=== PATIENT | male | born 1950 | race Caucasian/White ===

== ENCOUNTER → 2016-09-04 | Day surgery (SDC) | payer OTHER ==
[~2016-09-04] VITALS: Ht 188 cm; Wt 109.8 kg
[~2016-09-04] MED LIST: ASPIR 8181 MG PO; COUMADIN 2.5MG2.5 M1 PO; KRILL OIL500 MG PO; LIPITOR40 MG PO; LISINOPRIL2.5 MG PO; TOPROL XL25 MG PO; TRICOR145 MG PO; VITAMIN E400 UNIT PO; ZETIA10 MG PO
--- NOTE | ~2016-09-04 | S ---
[facility] [place] [address] SURGICAL PATH RPT PROCEDURE Name: SHAISTA TOLBERT Room #: REG [facility].#: [id number] Admission: 09/04/16 Date of : 48 Discharge: Report #: [id number] Path Case #: [id number] PATHOLOGY REPORT COLLECTION DATE: 09/04/2016 RECEIVED DATE: 09/04/2016 SUBMITTING PHYS: Dr. Mike Blake OTHER PHYS: Dr. Minnie Jarvis SPECIMEN(S) RECEIVED: A.Left lower lid lesion B.New margin left lower lid lesion lateral C.New margin left lower lid lesion medial * * * * * * * * * * * * FINAL DIAGNOSIS: A. Skin, left lower lid lesion, re-excision: - RESIDUAL BASAL CELL CARCINOMA PRESENT. - Lateral margins and deep margin free of malignancy. - TIPS POSITIVE FOR BASAL CELL CARCINOMA. B. Skin, left lower lid lesion lateral new margin, biopsy: - Negative for malignancy. C. Skin, left lower lid lesion medial new margin, biopsy: - Negative for malignancy. (IUV:mgr; d/t: 09/05/16) PATHOLOGIST: Marie Smith M.D. REPORT ELECTRONICALLY SIGNED BY: Marie Smith M.D. DATE/TIME: 09/05/2016 16:50 * * * * * * * * * * * * GROSS PATHOLOGY: A. The specimen is received fresh from the OR labeled with the patient's name, and "left lower lid lesion" consists of an oriented ellipse of skin measuring 1.2 x 0.7 x 0.3 cm. This is oriented by Dr. Blake as superior, lateral, inferior, and medial, these are assigned 9:00, 12:00, 3:00, and 6:00 respectively. The 6-12:00 is inked black, 6-9:00 is inked blue, and 9-12:00 is inked green. At this point, the specimen is serially sectioned and entirely submitted for frozen section as FSA1, subsequently submitted for permanent sections as A1. B. The specimen is received fresh from the OR labeled with the patient's name, and consists of an L-shape portion of skin, additionally labeled as "new margin left lower lid lateral, along with the patient's name. The specimen measures 1.1 x 0.3 x 0.5 cm. The specimen is additionally oriented inferior and lateral by [address] [address] SURGICAL PATH RPT PROCEDURE Name: SHAISTA TOLBERT [id number] Admission: 09/04/16 Date of : 48 Discharge: Report #: [id number] Path Case #: [id number] White. The lateral margin is inked black, and the inferior margin is not inked. At this point, the specimen is submitted en face for frozen section as FSB1, subsequently submitted for permanent sections as B1. C. The specimen is received fresh from the OR labeled with the patient's name, and "new margin left lower lid medial" consists of a triangular piece of skin measuring 0.7 x 0.5 x 0.5 cm. The new medial margin is inked blue and is submitted en face as FSC1, subsequently submitted for permanent sections as C1. (IUV:mgr; d/t: 09/04/16) FROZEN SECTION DIAGNOSIS: (Maria M Smith M.D.) FSA1, left lower lid lesion, excision: - BASAL CELL CARCINOMA IS PRESENT AT SUPERIOR AND INFERIOR TIPS. FSB1, new medial margin left lower lid lateral, excision: - New margins free. FSC1, new margin left lower lid medial, excision: - New margin free. These findings are discussed with Dr. Mike Blake in OR6 at [facility], and a written report is placed in the patient's chart. (IUV:mgr; d/t: 09/04/16) Testing performed by [facility] at [facility] [address] [place] [address] CLINICAL HISTORY: History of prior carcinoma excised by Moh's surgery, now undergoing re-excision. INITIAL CPT CODE(S): A; 53362, 18829 B; 69658, 99387 C; 59705, 05130 Professional services performed by [facility] at [facility] [address] [place] [address] Technical services performed by [facility] at [address] [place] [address], [address], [place] [address]. [facility] [address] [place] [address] SURGICAL PATH RPT PROCEDURE Name: SHAISTA TOLBERT Room #: REG [facility].#: [id number] Admission: 09/04/16 Date of : 48 Discharge: Report #: [id number] Path Case #: [id number] PHONE: [phone] DIRECTOR: Dante Hernandez M.D. * * * END OF REPORT * * *
--- NOTE | ~2016-09-04 | O ---
[place] [address] OPERATIVE REPORT Name: SHAISTA TOLBERT Room #: REG [facility].#: [id number] Admission: 09/04/16 Attend Phys: Mike Blake MD Discharge: Date of : 48 Report #: [id number] THIS REPORT FOR: //name// CC: RENNY Blake DATE OF SERVICE: 09/04/2016 PREOPERATIVE DIAGNOSIS: Tumor of left lower lid and lateral canthus. POSTOPERATIVE DIAGNOSES: Tumor of left lower lid and lateral canthus, basal cell carcinoma. PROCEDURE: Excision of tumor of left lower lid, left cheek and lateral canthus with fasciocutaneous flap repair of defect, vascularized tarsoconjunctival flap from left upper lid to left lower lid and full thickness skin graft from right upper lid to left lower lid. SURGEON: Mike Blake MD. CANNERY WORKER: None. ANESTHESIA: General. COMPLICATIONS: None. INDICATION FOR SURGERY: This pleasant 66-year-old gentleman has a nodular ulcerated mass in his lateral left lower lid that appears to most likely be a basal cell carcinoma that is not discretely defined. He presents today for excision of this lesion with frozen sections and repair of the ensuing defect. Informed consent was obtained to include but not limit to the potential risk for loss of vision, bleeding, infection, failure to improve the problem, the potential need for further surgery or treatment. DESCRIPTION OF PROCEDURE: The patient was taken to the operating room where general anesthesia was administered. The left lower lid, the left lateral canthus, left infratemporal fossa and the left cheek were all anesthetized with Xylocaine with epinephrine mixed with Marcaine and Wydase. The patient was subsequently prepped and draped in the usual sterile fashion. The lesion was then outlined utilizing a fine tip skin marking pen including approximately 2 mm normal appearing tissue around all of the margins. The incisions were then made perpendicularly across the eyelid margin and drawn down horizontally across the cheek back into the infratemporal fossa. They were then directed superiorly horizontally back up to the median raphe and then back to the lateral canthus. The entire lateral canthus was excised with that specimen. [address] [address] OPERATIVE REPORT Name: SHAISTA TOLBERT Room #: REG [facility] M.R.#: [id number] Admission: 09/04/16 Attend Phys: Mike Blake MD Discharge: Date of : 48 Report #: [id number] bleeding ensued, which was controlled with monopolar cautery. The specimen was then transferred to the waiting pathologist. She snap froze the specimen and found that the lesion was indeed a basal cell carcinoma and it was positive both medially and laterally. An additional medial margin was then taken, was oriented for the pathologist. An additional lateral margin was taken including a slip of the inferior margin laterally. Hemostasis was then re-achieved. The pathologist snap froze those specimens and found that both to be clear. At this point, the defect was quite large including the entire lateral canthus and a great majority of the left lower lid. A fasciocutaneous flap was then developed laterally to correct that part of the defect. The area was already taut from prior surgery. That flap was rotated into position and secured with interrupted deep Vicryl sutures and then more superficial Vicryl suture subcutaneously and 6-0 plain gut sutures in the skin. The posterior lamellar defect was then corrected by everting the left upper lid where an additional aliquot of anesthetic was administered. An incision was then made 3.5 mm below the inferior border of the tarsal plate through the tarsal plate. A vascularized tarsoconjunctival flap was then elevated utilizing thin section techniques. The flap was thinned to conjunctiva removing all of the underlying Staley's muscle. This flap was then rotated into position and secured with cardinal bites of Vicryl sutures reattaching the tarsal plate in this rotated position to the lower lid retractors. The lateral canthus was similarly reconstructed. Finally, the tarsal plate was reattached to the flap medially to the stump of lower lid still remaining. The anterior lamellar defect at this point was outlined in the lateral right upper lid extending into the infratemporal fossa. Incisions were then made with a Jerman scissor and a full thickness skin graft was then harvested utilizing thin section techniques. Hemostasis was achieved in the donor bed with monopolar cautery. That donor site was closed with interrupted 6-0 Vicryl sutures and a running 6-0 plain gut suture. The full thickness skin graft was then thinned and secured into its bed in the anterior lamellar defect of the left lower lid with cardinal bites of 7-0 Vicryl suture. 6-0 plain gut sutures were used for the final closure. The wound was then cleaned and dressed with erythromycin ophthalmic ointment. The left eye was then dressed with Telfa pad which were held in place with 2 eye pads and silk tape with Mastisol. The patient was subsequently transferred to the recovery area having tolerated the procedure well with no anesthetic or operative complications being noted. <ELECTRONICALLY SIGNED> By: Mike Blake MD 09/08/16 [id number] Mike Blake MD /nt
[2016-09-04 07:46] VITALS: BP 154/94
[2016-09-04 08:09] LABS: PROTIME 10.6 Seconds (9.3-11.4)
== END | disposition home or self-care (01) ==
LOC: OR 05:18
PROVIDERS: Ophthalmology
DX: C44.119 Basal cell carcinoma of skin of left eyelid, including canthus (principal); E78.00 Pure hypercholesterolemia, unspecified; K21.9 Gastro-esophageal reflux disease without esophagitis; Z98.890 Other specified postprocedural states
CPT/HCPCS: 50010; 50101; 50398; 51606; 51636; 56528; 56531; 62110; 62900; 70005